=== PATIENT | male | born 1975 | race Hispanic/Latino ===

== ENCOUNTER 2017-08-29 18:12 | Inpatient (IN) | payer SELFPAY ==
[2017-08-29] MEDS ORDERED: Meclizine HCl 25 MG TAB ONE (19:05)
[2017-08-29] MEDS ORDERED: Diazepam 5 MG TAB ONE (19:05)
[2017-08-29] MEDS ORDERED: hydrALAZINE 20 MG/ML VIAL ONE (19:34)
[2017-08-29] MEDS ORDERED: cloNIDine 0.1 MG TAB ONE (20:29)
[2017-08-29 22:27] VITALS: BMI 40.6
[2017-08-29] MEDS ORDERED: Acetaminophen 325 MG TAB PO PRN ×2 (22:46→22:57)
[2017-08-29] MEDS ORDERED: Ondansetron ODT 4 MG TAB SL PRN (22:46)
[2017-08-29] MEDS ORDERED: Ondansetron HCl/PF 4 MG/2 ML Vial IVP PRN ×2 (22:46→22:57)
[2017-08-29] MEDS ORDERED: Ondansetron ODT 4 MG TAB PO PRN (22:57)
[2017-08-29] MEDS ORDERED: hydrALAZINE 20 MG/ML VIAL SLOW IVP PRN (22:57)
[2017-08-29] MEDS ORDERED: Mag-Al 1200 mg/1200 mg/30 ML UDCUP PO PRN (22:57)
[2017-08-29] MEDS ORDERED: Lorazepam 1 MG TAB PO PRN (22:57)
[2017-08-29] MEDS ORDERED: NS 0.9% w/ 40 MEQ KCL 1,000 ML IV SCH (23:00)
[2017-08-29] MEDS ORDERED: Lisinopril 20 MG TAB PO SCH (23:15)
[2017-08-29] MEDS ORDERED: Amlodipine 5 MG TAB PO SCH (23:15)
[2017-08-29] MEDS ORDERED: Aspirin 325 MG TAB PO SCH (23:30)
--- NOTE | 2017-08-30 04:41 | HP ---
PRIMARY CARE PHYSICIAN: The patient currently does not have primary care physician. CHIEF COMPLAINT: Feeling dizzy and lightheaded. HISTORY OF PRESENT ILLNESS: Mr. Kohli is a pleasant 41-year-old gentleman that has a history of hyp ertension as well as a history of neurocytoma and seizures. He admits that he has not had any blood pressure medicine in over a year because he says he lost his insurance and has not been back to see a physician in over a year. 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 He said this happened around lunchtime, he says that he felt like the world was j ust rocking and spinning and he got so dizzy that he got nauseated and threw up once. The symptoms c ontinued and as a result he went to the emergency room in [place]. There was noted that his blood pre ssure was extremely elevated with a systolic in the range of 220 and diastolics in the range of 110 o r so. He was given hydralazine as well as Valium and meclizine with some relief of his symptoms and due to concerns for possible posterior stroke, he was transferred to our facility for further evaluat ion. The patient denies any pain such as chest pain or pain in his arm and he denies any weakness in his extremities. He says his only real symptom was the dizziness. REVIEW OF SYSTEMS: Constitutional: There have been no fevers, chills, no night sweats, no weight lo ss. HEENT: He denies any headaches. He has had the dizziness and spinning sensation. No double vi barry or blurred vision, no sore throat, no rhinorrhea, neck pain, no adenopathy. Pulmonary: No hemo ptysis, no cough, no wheezing. Cardiovascular: He denies any chest pain, no shortness of breath, no PND, no orthopnea. Gastrointestinal: No abdominal pain. He has had some nausea and vomiting, he r elates to the dizziness. No hematemesis, no melena. Genitourinary: No urinary frequency, hematuria , no hesitancy. Neurologic: As in the history of present illness. He says his last seizure was in February of last year and he says the typically gets it when he travels and tries to push himself too hard and that is a seizure that is. Skin/Integument: No skin changes. No rash. Psychiatric: No s ymptoms of anxiety or depression. PAST MEDICAL HISTORY: Significant for neurocytoma, seizures, and hypertension. PAST SURGICAL HISTORY: He has had a partial resection of the tumor back in 2005. ALLERGIES: KEPPRA. SOCIAL HISTORY: He is single. He has no children. His xjaure-eq-ydw Gavi Gore, he would l eduin to designate as his medical power of attorney lawyer. He is a [employer]. He denies any smoking. He do es drink a beer or whiskey few times a week. FAMILY HISTORY: Significant for breast cancer in his mother and father who had blood cancer. MEDICATIONS: He is not sure he has not been on them in over a year, but he believes he was on lisino pril 20 mg and he says there was some other medicine either with it or in it, but he is not sure if h e it was the diuretic and then was also on Lamictal 50 mg twice a day. PHYSICAL EXAMINATION: GENERAL: He is alert and oriented. He appears to be in no acute distress. VITAL SIGNS: His blood pressure is 234/126, heart rate is 78, respiratory rate of 16, temperature is 97.6. HEENT: Pupils are equal, round, and reactive. Extraocular muscles are intact. His sclerae are anic teric. Throat: There was no erythema and no exudate. Uvula was midline. NECK: There is no adenopathy, no bruits. LUNGS: Clear to auscultation. There was s no wheezing, no rales. CARDIOVASCULAR: He has a normal S1 and S2. There was no S3 or S4. No murmurs, clicks or rubs. ABDOMEN: Obese, it is soft, it is nontender, nondistended. Positive for bowel sounds. No rebound, no guarding. EXTREMITIES: There is no edema. He has multiple excoriations; however, on both of his lower extremi ties. He has got palpable dorsalis pedis pulses as well as posterior tibial pulses. NEUROLOGIC: Cranial nerves were intact. His muscle strength was 5/5 in both his upper and lower ext remities. There was no nystagmus. SIGNIFICANT LABORATORY RESULTS: White blood cell count is 9.4, hemoglobin 15.8, hematocrit is 49.1, and platelet count is 223. Sodium 143, potassium 3.0, chloride is 106, CO2 is 23, BUN of 16, creatin ine 1.05, glucose is 145. 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 ASSESSMENT AND PLAN: This is a pleasant 41-year-old gentleman who presents with hypertensive urgency . This could be the cause of his dizziness and vertigo; however, he is also at risk of a possible po sterior ischemic stroke. Therefore, he will be evaluated for this as well. With regards to blood pr essure control, we will try to reduce his pressure by at least 20%-25% over the first 24 hours and th en hopefully about 50% after that. Therefore, we will target a blood pressure of systolic of around 180 or so in the first 24 hours and then lower it from there. We will place him on lisinopril and li celeste a low dose of calcium channel arcelia as well as IV hydralazine. His heart rate is already in t he 60s and therefore, we will hold off on adding any type of beta blockade. We will also hold off on any diuretic given his low potassium. With regards to possible stroke, we will get an MRI of the br ain as well as a CT angiogram to assess the posterior circulation, place him on an aspirin a day and check his lipid panel. We will also get an echocardiogram given his uncontrolled blood pressure to r ule out significant heart disease such as LVH or a reduction in his ejection fraction. Further recom mendations will be dependent on the results of his tests.
[2017-08-30 06:35] LABS: #Basophils 0.1 thou/uL (0.0-0.2); #Eosinphils 0.1 thou/uL (0.0-0.7); #Lymphocytes 2.6 thou/uL (1.20-3.40); #Monocytes 0.7 thou/uL (0.11-0.59); #Neutrophils 8.2 thou/uL (1.40-6.50); %Basophils 0.8 % (0.0-1.0); %Eosinophils 1.2 % (0.0-10.0); %Lymphocytes 22.2 % (21.0-51.0); %Monocytes 6.1 % (0.0-10.0); %Neutrophils 69.7 % (42.0-75.0); Hemoglobin 14.7 g/dL (14.0-18.0); Mean Corpuscular HGB CONC 33.2 g/dL (32.0-36.0); Mean Corpuscular Hemoglobin 28.3 pg (27.0-31.0); Mean Corpuscular Volume 85.2 fl (80.0-94.0); Mean Platelet Volume 8.7 fL (7.4-10.4); Platelet Count 226 thou/uL (130-400); RBC Distribution Width 12.6 % (11.5-14.5); Red Blood Cell (RBC) Count 5.19 mill/uL (4.70-6.10); White Blood Cell (WBC) Count 11.8 thou/uL (4.8-10.8)
[2017-08-30] MEDS ORDERED: Loratadine 10 MG TAB PO PRN (06:51)
[2017-08-30] MEDS ORDERED: Milk Of Magnesia 30 ML UDCUP PO PRN (06:51)
[2017-08-30] MEDS ORDERED: Eucerin (Mineral Oil/Petrolatum,White) 30 gm Jar TOP PRN (06:51)
[2017-08-30] MEDS ORDERED: Sodium Chloride 0.65% Nasal 44 ML BOT EA NARE PRN (06:51)
[2017-08-30] MEDS ORDERED: Temazepam 15 MG CAP PO PRN (06:51)
[2017-08-30] MEDS ORDERED: Loperamide HCl 2 MG CAP PO PRN (06:51)
[2017-08-30] MEDS ORDERED: Chloraseptic Spray 180 ml Bottle PO PRN (06:51)
[2017-08-30] MEDS ORDERED: Artificial Tears 18 DROP/0.9 ML EA EYE PRN (06:51)
[2017-08-30] MEDS ORDERED: Senokot 8.6 MG TAB PO PRN (06:51)
[2017-08-30] MEDS ORDERED: Diabetic Tussin 200 MG/10 ML UDCUP PO PRN (06:51)
[2017-08-30] MEDS ORDERED: HYDROcodone/Acetaminophen 5/325 mg Tablet PO PRN (06:51)
[2017-08-30 06:52] LABS: Anion Gap 12 mmol/L (10-20); BUN (Urea Nitrogen) 17 mg/dL (8.9-20.6); Calc. Creatinine Clearance 165 mL/min (70-130); Calcium 8.9 mg/dL (7.8-10.44); Carbon Dioxide 25 mmol/L (22-29); Cardiac Risk 4.3 (Less than 4.5); Chloride 108 mmol/L (98-107); Cholesterol 182 mg/dl (< 200 Desired); Estimated GFR-MDRD 82; Glucose 99 mg/dL (70-105); HDL Cholesterol 42 mg/dL (>60 Neg Risk); LDL Cholesterol, Calculated 117 mg/dL; Potassium 3.3 mmol/L (3.5-5.1); Sodium 142 mmol/L (136-145); Triglycerides 115 mg/dL (Less than 150)
[2017-08-30] MEDS ORDERED: Potassium Chloride 20 MEQ TAB PO SCH (07:00)
[2017-08-30] MEDS ORDERED: Amlodipine 5 MG TAB PO SCH (09:00)
--- NOTE | 2017-08-30 09:04 | CT ---
CT ANGIOGRAM NECK WITH CONTRAST: Date: 08/30/17 HISTORY: Transient ischemic attack. COMPARISON: None. FINDINGS: CT angiogram of neck performed after the intravenous administration of contrast. 3D rendering provide d. The lung apices are clear. No upper mediastinal adenopathy. Thyroid is unremarkable. No anterior or p osterior cervical adenopathy. There is mild reversal of cervical lordosis. No fracture. No suspicious osteolytic or osteoblastic lesion in the skeleton. Mastoids are well aerated. Odontoid process is no rmal, as well as the occipital condyles. There is moderate degenerative disease of the right temporom andibular joint. Mucosal retention cyst within the left maxillary sinus. Visualized portions of the g lobes are normal. The larynx and pharynx appear unremarkable. Paraspinal musculature is normal. There is left-sided aortic arch. VESSELS: Right Side: Origin of right vertebral artery is patent. No evidence of dissection. No significant narrowing. No t hrombosis. Visualized portion of basilar artery patent. Common carotid artery origin is patent. Using NASCET criteria, there is no significant narrowing of t he extracranial or intracranial carotid artery. Left Side: Origin of left vertebral artery is patent. The left vertebral artery originates from the transverse a sarah. No narrowing. No dissection. No thrombosis. The vertebral arteries are nearly codominant. Common carotid artery origin is patent. Using NASCET criteria, there is no significant narrowing of t he internal carotid artery. IMPRESSION: No significant stenosis using NASCET criteria. Patent carotid and vertebral vasculature. POS: [facility]
--- NOTE | 2017-08-30 09:30 | MRI ---
MRI BRAIN WITHOUT CONTRAST: Date: 08/30/17 HISTORY: TIA. Slurred speech. Dizziness. COMPARISON: Numerous prior examinations, most recent MRI 10/09/13. FINDINGS: On the diffusion-weighted imaging sequence, there are no abnormal areas of diffusion restriction to s uggest acute infarction. This is confirmed on the ADC map. The mass within the left lateral ventricle, inseparable from the septum pellucidum, is unchanged in s ize. This is not enlarged and has some peripheral hemorrhage, may represent an old resection cavity. Left frontal porencephalic cyst is present. The flow-voids on the [facility] [place] are maintained. There is a left maxillary mucosal retention cyst. IMPRESSION: 1. No evidence of acute infarction. 2. 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 POS: [facility]
[2017-08-30] MEDS: Lisinopril 20 MG TAB PO SCH (09:59)
[2017-08-30] MEDS: Famotidine 20 MG TAB PO SCH ×2 (09:59→21:27)
[2017-08-30] MEDS: Aspirin 325 mg Enteric Coated Tablet PO SCH (10:01)
[2017-08-30] MEDS: lamoTRIgine 25 MG TAB PO SCH ×2 (10:01→21:27)
--- NOTE | 2017-08-30 10:29 | PDOC.PN ---
- Subjective Encounter Start Date: 08/30/17 Encounter Start Time: 07:10 -: old records requested/rev Patient seen and examined. No new complaints. No overnight events - Objective Resuscitation Status: Resuscitation Status FULL:Full Resuscitation MAR Reviewed: Yes Vital Signs & Weight: Vital Signs (12 hours) Temp Pulse Resp BP BP Pulse Ox 08/30/17 10:01 66 207/120 H 08/30/17 09:59 207/120 H 08/30/17 08:05 97.6 F 66 20 192/102 H 96 08/30/17 03:07 98.5 F 68 18 186/99 H 96 08/30/17 00:00 100 08/29/17 23:37 87 226/122 H 08/29/17 22:57 98.0 F 87 16 226/122 H 93 L I&O: 08/29/17 08/30/17 08/31/17 06:59 06:59 06:59 Intake Total 950 Balance 950 Result Diagrams: 08/30/17 05:37 08/30/17 05:37 Radiology Reviewed by me: Yes (CT angiography, MRI brain) EKG Reviewed by me: Yes (NSR) Phys Exam - Physical Examination Constitutional: NAD HEENT: PERRLA, moist MMs, sclera anicteric Neck: no JVD, supple Respiratory: no wheezing, no rales, no rhonchi, clear to auscultation bilateral Cardiovascular: RRR, no significant murmur, no rub Gastrointestinal: soft, non-tender, no distention, positive bowel sounds Musculoskeletal: no edema, pulses present Neurological: non-focal, normal sensation, moves all 4 limbs Lymphatic: no nodes Psychiatric: normal affect, A&O x 3 Skin: no rash, normal turgor Dx/Plan (1) Dizziness Code(s): R42 - DIZZINESS AND GIDDINESS Status: Acute Comment: likely from uncontrolled HTN, ruled out CVA (2) Hypertensive urgency Code(s): I16.0 - HYPERTENSIVE URGENCY Status: Acute (3) Hypokalemia Code(s): E87.6 - HYPOKALEMIA Status: Acute (4) Intraventricular central neurocytoma Code(s): D33.2 - BENIGN NEOPLASM OF BRAIN, UNSPECIFIED Status: Chronic (5) Morbid obesity with BMI of 40.0-44.9, adult Code(s): E66.01 - MORBID (SEVERE) OBESITY DUE TO EXCESS CALORIES; Z68.41 - BODY MASS INDEX (BMI) 40.0-44.9, ADULT Status: Chronic - Plan cont current plan of care, PT/OT * CT angiography and MRI negative for any acute CVA or vascular anomaly * medication reviewed as below * symptomatic treatment * neurology consulted * echo will be done * today will observe and control his BP and adjust meds * tomorrow expecting discharge * updated plan to pt. * replace potassium, check renin activity and aldosterone level for high BP Review of Systems - Review of Systems Eyes: negative: Pain, Vision Change, Conjunctivae Inflammation, Eyelid Inflammation, Redness, Other ENT: negative: Ear Pain, Ear Discharge, Nose Pain, Nose Discharge, Nose Congestion, Mouth Pain, Mouth Swelling, Throat Pain, Throat Swelling, Other Respiratory: negative: Cough, Dry, Shortness of Breath, Hemoptysis, SOB with Excertion, Pleuritic Pain, Sputum, Wheezing Cardiovascular: negative: chest pain, palpitations, orthopnea, paroxysmal nocturnal dyspnea, edema, light headedness, other Gastrointestinal: negative: Nausea, Vomiting, Abdominal Pain, Diarrhea, Constipation, Melena, Hematochezia, Other Genitourinary: negative: Dysuria, Frequency, Incontinence, Hematuria, Retention , Other Musculoskeletal: negative: Neck Pain, Shoulder Pain, Arm Pain, Back Pain, Hand Pain, Leg Pain, Foot Pain, Other Skin: negative: Rash, Lesions, Juan, Bruising, Other - Medications/Allergies Allergies/Adverse Reactions: Allergies Allergy/AdvReac Type Severity Reaction Status Date / Time levetiracetam [From [facility]] Allergy Severe Rash Verified 08/29/17 22:47 Medications: Current Medications Acetaminophen (Tylenol) 650 mg PO Q4H PRN PRN Reason: Headache/Fever or Pain Hydrocodone Bitart/Acetaminophen ([place] 5/325) 1 tab PO Q4H PRN PRN Reason: Moderate Pain (4-6) Al Hydroxide/Mg Hydroxide (Maalox) 30 ml PO Q6H PRN PRN Reason: Heartburn or Indigestion Amlodipine Besylate (Norvasc) 5 mg PO DAILY [facility] Last Admin: 08/30/17 10:01 Dose: 5 mg Artificial Tears (Tears Naturale) 0 drop EA EYE PRN PRN PRN Reason: Dry Eyes Aspirin (Ecotrin) 325 mg PO DAILY [facility] Last Admin: 08/30/17 10:01 Dose: 325 mg Atorvastatin Calcium (Lipitor) [address] [facility] Enalaprilat (Vasotec) 1.25 mg SLOW IVP Q6H PRN PRN Reason: BP > 220/110 Famotidine (Pepcid) 20 mg PO BID [facility] Last Admin: 08/30/17 09:59 Dose: 20 mg Guaifenesin (Robitussin Sf) 200 mg PO Q4H PRN PRN Reason: Cough Hydralazine HCl (Apresoline) 10 mg SLOW IVP Q4H PRN PRN Reason: SBP Greater Than 180 Lamotrigine (Lamictal) 50 mg PO BID [facility] Last Admin: 08/30/17 10:01 Dose: 50 mg Lisinopril (Zestril) 20 mg PO DAILY [facility] Last Admin: 08/30/17 09:59 Dose: 20 mg Loperamide HCl (Imodium) 2 mg PO PRN PRN PRN Reason: Diarrhea/Loose Stools Loratadine (Claritin) 10 mg PO DAILYPRN PRN PRN Reason: Sinus Symptoms Lorazepam (Ativan) 1 mg PO Q6H PRN PRN Reason: Anxiety/Agitation Magnesium Hydroxide (Milk Of Magnesium) 30 ml PO DAILYPRN PRN PRN Reason: Constipation Mineral Oil/White Petrolatum (Eucerin Cream) 0 gm TOP BIDPRN PRN PRN Reason: Dry Skin Ondansetron HCl (Zofran Odt) 4 mg PO Q6H PRN PRN Reason: Nausea/Vomiting Ondansetron HCl (Zofran) 4 mg IVP Q6H PRN PRN Reason: Nausea/Vomiting Phenol (Chloraseptic [place] 180 Ml Bot) 0 ml PO PRN PRN PRN Reason: Sore Throat Senna (Senokot) 2 tab PO HSPRN PRN PRN Reason: Constipation Sodium Chloride ([place] Nasal [place] 0.65%) 0 ml EA NARE QIDPRN PRN PRN Reason: Nasal Congestion Sodium Chloride (Flush - Normal Saline) 10 ml IVF Q12HR [facility] Last Admin: 08/30/17 10:02 Dose: 10 ml Sodium Chloride (Flush - Normal Saline) 10 ml IVF PRN PRN PRN Reason: Saline Flush Temazepam (Restoril) 15 mg PO HSPRN PRN PRN Reason: Insomnia
[2017-08-30 11:21] LABS: Amphetamine Not Detected (NotDetected); Barbiturates Screen Not Detected (NotDetected); Benzodiazepine Screen Detected (NotDetected); Cocaine Metabolite Screen Not Detected (NotDetected); Medtox Control Line Valid? VALID (VALID); Medtox Reader # READER 4; Methadone Not Detected (NotDetected); Methamphetamine Not Detected (NotDetected); Opiate Screen Not Detected (NotDetected); Oxycodone Screen Not Detected (NotDetected); Phencyclidine (PCP) Not Detected (NotDetected); THC/Cannabinoid Screen Not Detected (NotDetected); Tricyclic Screen Not Detected (NotDetected)
[2017-08-30 11:25] LABS: Creatinine, Urine 164.27 mg/dL (63-166)
[2017-08-30] MEDS: hydrALAZINE 20 MG/ML VIAL SLOW IVP PRN ×3 (13:30→21:33)
--- NOTE | 2017-08-30 21:11 | CON ---
DATE OF CONSULTATION: 08/30/2017 REFERRING PROVIDER: Dr. Behzad Jackman. REASON FOR CONSULTATION: Dizziness. HISTORY OF PRESENT ILLNESS: Mr. Kohli is a pleasant 41-year-old male who has been consulted for evaluation of the dizziness. He reports that on yesterday morning he woke up with a sudden onset of dizziness and vertigo-type sensation. He was having difficulty with balance. He felt that as if everything was spinning. While walking, he felt off balance, however, he did not have any fall. He did not have any double vision, blurry vision, ptosis, dysarthria, dysphagia, tinnitus, hearing changes, numbness, tingling or weakness on upper or lower extremities. He also became nauseated and vomited twice. He presented to the emergency room for further evaluation. On arrival here, his blood pressure was noted to be extremely elevated with a systolic in the range of 220s and diastolic in the range of 110s. He reports that his symptoms started improving over the time and this morning he has a complete resolution of his symptoms. PAST MEDICAL HISTORY: Significant for hypertension, neurocytoma and seizures. PAST SURGICAL HISTORY: Significant for partial resection of tumor from his back in 2005. CURRENT MEDICATIONS: Please review MAR. ALLERGIES: Include KEPPRA. SOCIAL HISTORY: He denies smoking, alcohol use, or illicit drug use. FAMILY HISTORY: None significant. REVIEW OF SYSTEMS: As mentioned above in the HPI, otherwise negative. PHYSICAL EXAMINATION: VITAL SIGNS: Blood pressure of 193/95, pulse of 75, temperature of 98, respirations are 20, O2 saturation of 97% on room air. GENERAL: Well-developed, well-nourished male, in no apparent distress. RESPIRATORY: Clear to auscultation bilaterally. CARDIOVASCULAR: Regular rate and rhythm. NEUROLOGIC: Mental status: The patient is awake, alert, oriented x3. Speech and language: Fluent speech. Cranial nerves: Pupils are 3 mm and reactive. Visual elizabeth are intact. External muscles are intact. No nystagmus noted. Face is symmetric. Tongue and uvula are midline. Motor exam showed normal tone and bulk with a 5/5 strength in both upper and lower extremities. Sensory : Sensation is intact and symmetric. Deep tendon reflexes 2+ reflexes in both upper and lower extremities. Babinski: Plantar responses flexion bilaterally. Coordination intact to [id number] and finger tapping bilaterally. LABORATORY DATA: Labs are reviewed, which included CBC, BMP, homocysteine, and urine drug screen, which is significant for WBC of 11.8, potassium of 3.3 and urine drug screen was positive for benzodiazepine, otherwise negative. IMAGING STUDIES: MRI brain without contrast was reviewed, which showed no acute intracranial abnormality. CT angiogram of the neck was reviewed, which showed no acute extracranial vascular abnormality. IMPRESSION: 1. Dizziness. 2. Malignant hypertension with hypertensive urgency. ASSESSMENT AND PLAN: Mr. Kohli is a pleasant 41-year-old male who presented with episode of dizziness and vertigo. His blood pressure was extremely elevated on arrival to the emergency room. This event may have been likely secondary to hypertensive urgency. I have advised him on secondary stroke prevention risk factors including high blood pressure, diabetes, and cholesterol, diet and exercise and no smoking. I will recommend starting him on aspirin 81 mg daily for secondary stroke prevention. Continue supportive care. Continue current medical management. Thank you for consultation. TYREL
[2017-08-30] MEDS: Atorvastatin Calcium 10 MG TAB PO SCH (21:27)
[2017-08-31] MEDS: Enalaprilat Dihydrate 1.25 MG/ML VIAL SLOW IVP PRN ×2 (05:00→11:46)
[2017-08-31] MEDS: Aspirin 325 mg Enteric Coated Tablet PO SCH (08:54)
[2017-08-31] MEDS: Amlodipine 10 MG TAB PO SCH (08:54)
[2017-08-31] MEDS: lamoTRIgine 25 MG TAB PO SCH ×2 (08:55→21:39)
[2017-08-31] MEDS: Hydrochlorothiazide 25 MG TAB PO SCH (08:55)
[2017-08-31] MEDS: Famotidine 20 MG TAB PO SCH ×2 (08:55→21:34)
[2017-08-31] MEDS: Lisinopril 20 MG TAB PO SCH (08:56)
[2017-08-31] MEDS: Metoprolol Tartrate 25 MG TAB PO SCH ×2 (08:56→21:34)
--- NOTE | 2017-08-31 10:16 | PDOC.PN ---
- Subjective Encounter Start Date: 08/31/17 Encounter Start Time: 09:30 Subjective: no chest pain, sob or dizziness -: is amb in room - Objective Resuscitation Status: Resuscitation Status FULL:Full Resuscitation MAR Reviewed: Yes Vital Signs & Weight: Vital Signs (12 hours) Temp Pulse Resp BP BP Pulse Ox 08/31/17 08:56 98.1 F 69 20 184/100 H 95 08/31/17 08:54 69 184/84 H 08/31/17 07:41 98.1 F 69 20 184/106 H 95 08/31/17 07:27 214/102 H 08/31/17 06:41 180/92 H 08/31/17 05:00 184/100 H 08/31/17 03:18 97.8 F 66 18 184/100 H 93 L 08/30/17 23:14 97.9 F 60 16 173/103 H 96 I&O: 08/30/17 08/31/17 09/01/17 06:59 06:59 06:59 Intake Total 950 263 Balance 950 263 Result Diagrams: 08/30/17 05:37 08/30/17 05:37 Phys Exam - Physical Examination HEENT: PERRLA, moist MMs Neck: no JVD, supple Respiratory: no wheezing, no rales Cardiovascular: RRR, no significant murmur Gastrointestinal: soft, non-tender, positive bowel sounds Musculoskeletal: no edema, pulses present Neurological: non-focal, moves all 4 limbs Psychiatric: normal affect, A&O x 3 Dx/Plan (1) Dizziness Code(s): R42 - DIZZINESS AND GIDDINESS Status: Acute Comment: likely from uncontrolled HTN, ruled out CVA (2) Hypertensive urgency Code(s): I16.0 - HYPERTENSIVE URGENCY Status: Acute Comment: still uncontrolled (3) Morbid obesity with BMI of 40.0-44.9, adult Code(s): E66.01 - MORBID (SEVERE) OBESITY DUE TO EXCESS CALORIES; Z68.41 - BODY MASS INDEX (BMI) 40.0-44.9, ADULT Status: Chronic (4) Dyslipidemia Code(s): E78.5 - HYPERLIPIDEMIA, UNSPECIFIED Status: Acute - Plan increase norvasc to 10mg daily -: add lopressor and hctz to lisinopril -: sbp above 180 still -: on asp and lipitor -: dc plan when htn is well controlled * . Review of Systems - Medications/Allergies Allergies/Adverse Reactions: Allergies Allergy/AdvReac Type Severity Reaction Status Date / Time levetiracetam [From [facility]] Allergy Severe Rash Verified 08/29/17 22:47 Medications: Current Medications Acetaminophen (Tylenol) 650 mg PO Q4H PRN PRN Reason: Headache/Fever or Pain Hydrocodone Bitart/Acetaminophen ([place] 5/325) 1 tab PO Q4H PRN PRN Reason: Moderate Pain (4-6) Al Hydroxide/Mg Hydroxide (Maalox) 30 ml PO Q6H PRN PRN Reason: Heartburn or Indigestion Amlodipine Besylate (Norvasc) 10 mg PO DAILY [facility] [place] Last Admin: 08/31/17 08:54 Dose: 10 mg Artificial Tears (Tears Naturale) 0 drop EA EYE PRN PRN PRN Reason: Dry Eyes Aspirin (Ecotrin) 325 mg PO DAILY [facility] [place] Last Admin: 08/31/17 08:54 Dose: 325 mg Atorvastatin Calcium (Lipitor) 10 mg PO HS [facility] [place] Last Admin: 08/30/17 21:27 Dose: 10 mg Enalaprilat (Vasotec) 1.25 mg SLOW IVP Q6H PRN PRN Reason: BP > 220/110 Last Admin: 08/31/17 05:00 Dose: 1.25 mg Famotidine (Pepcid) 20 mg PO BID [facility] [place] Last Admin: 08/31/17 08:55 Dose: 20 mg Guaifenesin (Robitussin Sf) 200 mg PO Q4H PRN PRN Reason: Cough Hydralazine HCl (Apresoline) 10 mg SLOW IVP Q4H PRN PRN Reason: SBP Greater Than 180 Last Admin: 08/30/17 21:33 Dose: 10 mg Hydrochlorothiazide (Hydrochlorothiazide) 25 mg PO DAILY [facility] [place] Last Admin: 08/31/17 08:55 Dose: 25 mg Lamotrigine (Lamictal) 50 mg PO BID [facility] Last Admin: 08/31/17 08:55 Dose: 50 mg Lisinopril (Zestril) 20 mg PO DAILY [facility] [place] Last Admin: 08/31/17 08:56 Dose: 20 mg Loperamide HCl (Imodium) 2 mg PO PRN PRN PRN Reason: Diarrhea/Loose Stools Loratadine (Claritin) 10 mg PO DAILYPRN PRN PRN Reason: Sinus Symptoms Lorazepam (Ativan) 1 mg PO Q6H PRN PRN Reason: Anxiety/Agitation Magnesium Hydroxide (Milk Of Magnesium) 30 ml PO DAILYPRN PRN PRN Reason: Constipation Metoprolol Tartrate (Lopressor) 25 mg PO BID [facility] Last Admin: 08/31/17 08:56 Dose: 25 mg Mineral Oil/White Petrolatum (Eucerin Cream) 0 gm TOP BIDPRN PRN PRN Reason: Dry Skin Ondansetron HCl (Zofran Odt) 4 mg PO Q6H PRN PRN Reason: Nausea/Vomiting Ondansetron HCl (Zofran) 4 mg IVP Q6H PRN PRN Reason: Nausea/Vomiting Phenol (Chloraseptic [place] 180 Ml Bot) 0 ml PO PRN PRN PRN Reason: Sore Throat Senna (Senokot) 2 tab PO HSPRN PRN PRN Reason: Constipation Sodium Chloride ([place] Nasal [place] 0.65%) 0 ml EA NARE QIDPRN PRN PRN Reason: Nasal Congestion Sodium Chloride (Flush - Normal Saline) 10 ml IVF Q12HR [facility] [place] Last Admin: 08/31/17 08:56 Dose: 10 ml Sodium Chloride (Flush - Normal Saline) 10 ml IVF PRN PRN PRN Reason: Saline Flush Temazepam (Restoril) 15 mg PO HSPRN PRN PRN Reason: Insomnia
[2017-08-31] MEDS: hydrALAZINE 20 MG/ML VIAL SLOW IVP PRN (16:10)
[2017-08-31] MEDS: Atorvastatin Calcium 10 MG TAB PO SCH (21:34)
[2017-09-01 07:47] VITALS: TEMP 97.6
[2017-09-01] MEDS: Famotidine 20 MG TAB PO SCH (08:27)
[2017-09-01] MEDS: Aspirin 325 mg Enteric Coated Tablet PO SCH (08:27)
[2017-09-01] MEDS: Amlodipine 10 MG TAB PO SCH (08:27)
[2017-09-01] MEDS: Lisinopril 20 MG TAB PO SCH (08:27)
[2017-09-01] MEDS: Metoprolol Tartrate 25 MG TAB PO SCH (08:27)
[2017-09-01] MEDS: Hydrochlorothiazide 25 MG TAB PO SCH (08:27)
[2017-09-01] MEDS: lamoTRIgine 25 MG TAB PO SCH (08:28)
[2017-09-01 08:30] VITALS: BP 182/108
--- NOTE | 2017-09-01 10:55 | PDOC.PN ---
- Subjective Encounter Start Date: 09/01/17 Encounter Start Time: 08:00 Subjective: no c/o dizziness or chest pain - Objective Resuscitation Status: Resuscitation Status FULL:Full Resuscitation MAR Reviewed: Yes Vital Signs & Weight: Vital Signs (12 hours) Temp Pulse Resp BP BP Pulse Ox 09/01/17 08:27 62 182/108 H 09/01/17 08:00 97.6 F 62 16 09/01/17 07:47 97.6 F 62 16 182/103 H 95 09/01/17 03:07 97.8 F 61 16 172/95 H 92 L 09/01/17 00:25 54 L 167/87 H 08/31/17 23:06 97.7 F 60 16 199/93 H 95 I&O: 08/31/17 09/01/17 09/02/17 06:59 06:59 06:59 Intake Total 263 600 Balance 263 600 Result Diagrams: 08/30/17 05:37 08/30/17 05:37 Phys Exam - Physical Examination HEENT: PERRLA, moist MMs Neck: no JVD, supple Respiratory: no wheezing, no rales Cardiovascular: RRR, no significant murmur Gastrointestinal: soft, non-tender, positive bowel sounds Musculoskeletal: no edema, pulses present Neurological: non-focal, moves all 4 limbs Psychiatric: normal affect, A&O x 3 Dx/Plan (1) Dizziness Code(s): R42 - DIZZINESS AND GIDDINESS Status: Acute Comment: likely from uncontrolled HTN, ruled out CVA (2) Hypertensive urgency Code(s): I16.0 - HYPERTENSIVE URGENCY Status: Acute (3) Morbid obesity with BMI of 40.0-44.9, adult Code(s): E66.01 - MORBID (SEVERE) OBESITY DUE TO EXCESS CALORIES; Z68.41 - BODY MASS INDEX (BMI) 40.0-44.9, ADULT Status: Chronic (4) Dyslipidemia Code(s): E78.5 - HYPERLIPIDEMIA, UNSPECIFIED Status: Acute - Plan hemostable -: to continue current htn meds -: to check bp and pulse twice daily and record to f/u with PCP -: dc pt home * .
--- NOTE | 2017-09-01 13:50 | DIS ---
DATE OF ADMISSION: 08/29/2017 DATE OF DISCHARGE: 09/01/2017 DISCHARGE DISPOSITION: To home. PRIMARY DISCHARGE DIAGNOSES: Initial acute encephalopathy with dizziness, resolved; hypertensive emergency, resolving; morbid obesity; dyslipidemia. PROCEDURES DONE DURING HOSPITALIZATION: CT angio brain done showed no significant stenosis seen. There is patent carotid and vertebral vasculature. MRI brain done showed no acute intracranial abnormality. 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 H&H was 14 and 44, platelet count 226, MCV was 85, LDL 117, HDL 42, total cholesterol 182, triglycerides 115. Urine drug screen was positive for benzodiazepine. DISCHARGE MEDICATIONS: Aspirin 81 mg p.o. daily, Lipitor 10 mg p.o. at bedtime , Norvasc 10 mg p.o. daily, hydrochlorothiazide 25 mg p.o. daily, lamotrigine 50 mg p.o. twice daily, lisinopril 20 mg p.o. daily, Lopressor 25 mg p.o. twice daily. ALLERGIES: Allergic to KEPPRA. INPATIENT CONSULTS: Dr. Marian Stoner for Neurology. BRIEF COURSE DURING HOSPITALIZATION: Patient initially got admitted on the with complaints of feeling dizzy and lightheaded. His initial systolic blood pressure was 220 with diastolic in the 110s. He was admitted to stroke unit initially and has had gentle reduction of BP for his hypertensive emergency. Prior to discharge, his dizziness and vertigo has resolved. He had not been taking any medication due to financial issues for hypertension. He has had complete workup done for his brain including MRI and CT angiography. No acute CVA was noted. He was up titrated slowly on his hypertensive medications. He has been advised to check blood pressure and pulse twice daily and record on a sheet of paper to follow up with primary care physician in 7-10 days. He is hemodynamically and neurologically stable prior to discharge. Please see a face -to-face documentation for the day of discharge on [employer]. [facility] HOSPITALJesús
[2017-09-03 17:14] LABS: Renin Activity 2.258 ng/mL/hr (0.167-5.380)
--- NOTE | 2017-10-12 22:13 | EKG ---
Test Reason : DIZZINESS Blood Pressure : / mmHG Vent. Rate : 076 BPM Atrial Rate : 076 BPM P-R Int : 130 ms QRS Dur : 116 ms QT Int : 406 ms P-R-T Axes : 038 006 104 degrees QTc Int : 456 ms Normal sinus rhythm Possible Left atrial enlargement Left ventricular hypertrophy with QRS widening Abnormal ECG Confirmed by DONITA MINA D.O. ([id number]), editorial intern MIKAEL AYOUB ([id number] on 10/12/2017 10:13:01 PM Referred By: Confirmed By:DONITA MINA D.O.
== END 2017-09-01 11:27 | disposition home or self-care (01) | DRG 304 ==
LOC: ERS 18:12 → 2SE 20:20
PROVIDERS: ADMIT Internal Medicine; ATTEND Internal Medicine
DX: I16.0 Hypertensive urgency (principal); G93.40 Encephalopathy, unspecified; Z68.41 Body mass index [BMI] 40.0-44.9, adult; E66.01 Morbid (severe) obesity due to excess calories; E87.6 Hypokalemia; E78.5 Hyperlipidemia, unspecified; G40.909 Epilepsy, unspecified, not intractable, without status epilepticus; Z88.8 Allergy status to other drugs, medicaments and biological substances
CPT/HCPCS: 36415; 70498; 70551; 80048; 80061; 80306; 82088; 82570; 83090; 84156; 84244; 85025; 93005; 93306; 96374; 96376; A4216; G8978-GP-CH; G8979-GP-CH; G8980-GP-CH; G8987-GO-CH; G8988-GO-CH; G8989-GO-CH; J0360